=== PATIENT | male | born 1985 | race African-American/Black ===

== ENCOUNTER 2017-12-18 13:36 | Emergency (ER) | payer SELFPAY ==
[~2017-12-18] VITALS: Ht 167.6 cm; Wt 76.4 kg
[~2017-12-18 13:36] MED LIST: AMOXICILLIN 8751 TAB PO; BCP PO; BIO-TN500 MCG PO; ERYTHROMYCIN5 MG/G1 OP; FLAX SEED OIL1000 MG PO; FLEXERIL 1010 MG/TAB PO; MIDRIN CAPSULE1 CAP PO; MOTRIN 800800 MG/TAB PO; MULTIPLE VITAMI1 CAP PO; NO HOME MEDICATIONS; NORCO 325 MG-51 TAB PO; PEPCID 20MG TAB20 MG PO; PHENERGAN W/CO120 ML PO; PREDNISONE10 MG PO; PROMETHAZINE12.5 M5 PO; SEE BELOW; TRIAMCINOLONE0.1% TP; TUSS PO; ZOFRAN 4MG T4 MG/TAB PO
[2017-12-18 13:48] VITALS: BP 165/97; TEMP 98.2
[2017-12-18 17:26] LABS: BASO % 0.4 % (0.0-2.0); EOS # 0.1 (0.0-0.7); EOS % 1.6 % (0-4.0); GRAN # 3.9 (1.4-6.5); GRAN % 56.6 % (42.2-75.2); HEMOGLOBIN 14.4 g/dl (13.5-18.0); LYMPH # 2.4 (1.2-3.4); LYMPH % 34.6 % (20.0-51.0); MEAN CELL VOLUME 95 fl (80.0-100.0); MEAN CORPUSCULAR HEMOGLOBIN 33 pg (27.0-31.0); MEAN CORPUSCULAR HGB CONC 35 g/dl (33.0-37.0); MEAN PLATELET VOLUME 8.5 fl (7.4-10.4); MONO # 0.5 (0.1-0.6); MONO % 6.7 % (1.7-9.3); PLATELET COUNT 261 K/mm3 (130-400); RED BLOOD COUNT 4.32 M/mm3 (4.20-5.60)
[2017-12-18 17:32] LABS: INR 1.1 (0.8-3.0); PROTHROMBIN TIME 13.1 SECONDS (9.7-12.8)
[2017-12-18 17:35] LABS: PARTIAL THROMBOPLASTIN TIME 33.4 SECONDS (26.0-37.0)
[2017-12-18 17:36] LABS: ALBUMIN 4.8 gm/dL (3.5-5.0); BILIRUBIN,TOTAL 0.9 mg/dL (0.0-1.0); CALCIUM 9.9 mg/dL (8.4-10.2); CREATININE, serum 1.1 mg/dL (0.66-1.25); POTASSIUM 4.2 mmol/L (3.4-5.0); TOTAL PROTEIN 8.1 gm/dL (6.4-8.2)
[2017-12-18 18:04] VITALS: PULSE 82
== END 2017-12-18 18:05 | disposition home or self-care (01) ==
LOC: COL.ER 13:36
PROVIDERS: Emergency Medicine
DX: K92.2 Gastrointestinal hemorrhage, unspecified (principal); F17.210 Nicotine dependence, cigarettes, uncomplicated; Z90.49 Acquired absence of other specified parts of digestive tract

== ENCOUNTER 2019-05-06 14:11 | Emergency (ER) | payer SELFPAY ==
[~2019-05-06] VITALS: Ht 170.2 cm; Wt 72.7 kg
[2019-05-06 14:14] VITALS: TEMP 97.9
[2019-05-06] MEDS ORDERED: AMOXICILLIN875 MG PO (14:31)
[2019-05-06 15:11] LABS: STREP SCREEN NEGATIVE
[2019-05-06 15:24] VITALS: BP 136/85; PULSE 81
== END 2019-05-06 15:25 | disposition home or self-care (01) ==
LOC: COL.ER 14:11
PROVIDERS: Physician Assistant
DX: J06.9 Acute upper respiratory infection, unspecified (principal); H66.91 Otitis media, unspecified, right ear; F17.210 Nicotine dependence, cigarettes, uncomplicated

== ENCOUNTER 2023-01-01 10:38 | Emergency (ER) | payer SELFPAY ==
[~2023-01-01] VITALS: Ht 170.2 cm; Wt 72.7 kg
[~2023-01-01 10:38] MED LIST changes: +AMOXICILLIN875 MG PO
[2023-01-01 10:44] VITALS: BP 194/112; TEMP 97.8
[2023-01-01 12:02] VITALS: PULSE 84
== END 2023-01-01 12:03 | disposition home or self-care (01) ==
LOC: COL.ER 10:38
DX: M25.511 Pain in right shoulder (principal); F17.210 Nicotine dependence, cigarettes, uncomplicated; Z28.310 Unvaccinated for COVID-19